=== PATIENT | female | born 1995 | race Caucasian/White ===

== ENCOUNTER 2017-01-05 11:57 | Emergency (ER) | payer BC, MEDICAID, MEDICARE ==
[2017-01-05] MEDS ORDERED: TORAdol 30 mg Injection IM ONE (12:03)
[2017-01-05] MEDS ORDERED: Vistaril 50 MG/ML IM ONE ×2 (12:04→12:09)
[2017-01-05] MEDS ORDERED: TORAdol 30 mg Injection ONE (12:09)
[2017-01-05] MEDS ORDERED: Adacel Vial IM ONE ×2 (12:33→12:40)
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
[2017-01-05 13:39] VITALS: BP 130/66; PULSE 90; O2SAT 97
== END 2017-01-05 13:38 | disposition home or self-care (01) ==
LOC: ED 11:57
DX: S00.93XA Contusion of unspecified part of head, initial encounter (principal); V89.2XXA Person injured in unspecified motor-vehicle accident, traffic, initial encounter
CPT/HCPCS: 70450; 84703; 90471; 90715; 96372; 99284; J1885; J3410